=== PATIENT | male | born 1985 | race Hispanic/Latino ===

== ENCOUNTER 2019-08-01 14:36 | Emergency (ER) | payer MEDICAID ==
[2019-08-01] MEDS ORDERED: LORazepam 2 MG/ML VIAL IM PRN (15:12)
[2019-08-01] MEDS ORDERED: HALOPERIDOL LACTATE 5 MG/1 ML INJ IM PRN (15:12)
--- NOTE | 2019-08-01 15:15 | Emergency Department Report ---
Chief Complaint: Psych Stated Complaint: SUICIDAL THOUGHTS - HPI History of Present Illness: 33 y/o male, prader williy syndrome, developmental delay, here for si, caprophage, hallucinations, requests "euthanasia" med clearance for psych labs ed hold psych consult reconcile medications Vital Signs 08/01/19 14:48 Temperature 98.3 F Pulse Rate 72 Respiratory 20 Rate Blood Pressure 121/82 O2 Sat by Pulse 97 Oximetry - Exam Vital Signs: Vital Signs 08/01/19 14:48 Temperature 98.3 F Pulse Rate 72 Respiratory 20 Rate Blood Pressure 121/82 O2 Sat by Pulse 97 Oximetry MSE screening note: Focused history and physical exam performed. Due to findings the following was ordered: ED Disposition for MSE Condition: Stable
--- NOTE | 2019-08-01 15:43 | Emergency Department Report ---
ED Psych HPI - General Chief Complaint: Psych Stated Complaint: SUICIDAL THOUGHTS Time Seen by Provider: 08/01/19 15:33 Source: patient, family Mode of arrival: Ambulatory - History of Present Illness Initial Comments: Pt is a 33 male who comes to ER with caregiver from skilled nursing due to SI and agitation. The caregiver states it peaked last PM when pt stated he wants to , he stooled and urinated on himself, smeared it, and then ingested it. Pt has aud hallucinations to kill himself. He is constricted and will not tell me what his plan is. Pt lives in skilled nursing but his NOK is his mother phone [phone]. Pt is pacing and circling provider; telling me to shut up and leave him alone. Psych Dr Fox who saw pt today and inc his latuda PMH DM HTN PRADER WILLI OSTEOPENIA HPLD BIPOLAR MILD ID RX TESTOSTERONE LATUDA HUMALOG LAMICTAL LISINOPRIL TOPAMAX LANTUS FLONASE LIP[facility]OR shelter [id number] Complaint: suicidal ideation -: Sudden, days(s) Associated Psychiatric Symptoms: auditory hallucinations History of same: Yes (but not in last year) Quality: constant Improves With: none Worsens With: none Associated Symptoms: denies other symptoms Treatments Prior to Arrival: other (saw psych today and they inc latuda) If Self Harm: admits thoughts of, other (will not tell me plan "tells me to shut up and not speak") - Related Data Home Medications Medication Instructions Recorded Confirmed Last Taken FLUoxetine [PROzac] 60 mg PO DAILY 03/01/18 03/01/18 03/01/18 07:00 60 mg Lurasidone HCl [Latuda] 80 mg PO QHS 03/01/18 03/01/18 02/28/18 19:30 Topiramate [Topamax] 100 mg PO BID 03/01/18 03/01/18 03/01/18 07:30 100 mg lamoTRIgine [LaMICtal] 100 mg PO BID 03/01/18 03/01/18 03/01/18 07:30 Previous Rx's Medication Instructions Recorded Last Taken Type AtorvaSTATin [Lipitor] 20 mg PO QHS tablet 03/05/18 Unknown Rx Insulin Glargine [Lantus VIAL] 30 units SUB-Q QHS #300 units 03/05/18 Unknown Rx Lispro Insulin [HumaLOG] 12 unit SUB-Q AC #300 units 03/05/18 Unknown Rx hydroCHLOROthiazide [HCTZ] 25 mg PO QDAY tablet 03/05/18 Unknown Rx lisinopriL [Zestril TAB] 20 mg PO QDAY #30 tablet 03/05/18 Unknown Rx Allergies Allergy/AdvReac Type Severity Reaction Status Date / Time No Known Allergies Allergy Verified 08/01/19 14:41 ED Review of Systems ROS: Stated complaint: SUICIDAL THOUGHTS Other details as noted in HPI Comment: All other systems reviewed and negative ED Past Medical Hx - Past Medical History Previous Medical History?: Yes Hx Hypertension: Yes Hx Heart Attack/AMI: No Hx Congestive Heart Failure: No Hx Diabetes: Yes Hx Deep Vein Thrombosis: No Hx Pulmonary Embolism: No Hx GERD: No Hx Liver Disease: No Hx Renal Disease: No Hx of Cancer: No Hx Sickle Cell Disease: No Hx Arthritis: No Hx Headaches / Migraines: No Hx Seizures: No Hx Kidney Stones: No Hx Psychiatric Treatment: Yes (BIPOLAR) Hx Asthma: No Hx COPD: No Hx Tuberculosis: No Hx Dementia: No Hx HIV: No Additional medical history: prader willi - Surgical History Hx Coronary Stent: No Hx Open Heart Surgery: No Hx Pacemaker: No Hx Internal Defibrillator: No Hx Cholecystectomy: No Hx Appendectomy: Yes Hx Breast Surgery: No - Family History Family history: no significant - Social History Smoking Status: Never Smoker Substance Use Type: None - Medications Home Medications: Home Medications Medication Instructions Recorded Confirmed Last Taken Type FLUoxetine [PROzac] 60 mg PO DAILY 03/01/18 03/01/18 03/01/18 07:00 History 60 mg Lurasidone HCl [Latuda] 80 mg PO QHS 03/01/18 03/01/18 02/28/18 19:30 History Topiramate [Topamax] 100 mg PO BID 03/01/18 03/01/18 03/01/18 07:30 History 100 mg lamoTRIgine [LaMICtal] 100 mg PO BID 03/01/18 03/01/18 03/01/18 07:30 History AtorvaSTATin [Lipitor] 20 mg PO QHS tablet 03/05/18 Unknown Rx Insulin Glargine [Lantus VIAL] 30 units SUB-Q QHS #300 units 03/05/18 Unknown Rx Lispro Insulin [HumaLOG] 12 unit SUB-Q AC #300 units 03/05/18 Unknown Rx hydroCHLOROthiazide [HCTZ] 25 mg PO QDAY tablet 03/05/18 Unknown Rx lisinopriL [Zestril TAB] 20 mg PO QDAY #30 tablet 03/05/18 Unknown Rx ED Physical Exam - General Limitations: Other General appearance: anxious - Head Head exam: Present: atraumatic, normocephalic - Eye Eye exam: Present: normal appearance - ENT ENT exam: Present: mucous membranes moist - Neck Neck exam: Present: normal inspection - Respiratory Respiratory exam: Present: normal lung sounds bilaterally. Absent: respiratory distress - Cardiovascular Cardiovascular Exam: Present: regular rate, normal rhythm. Absent: systolic murmur, diastolic murmur, rubs, gallop - GI/Abdominal GI/Abdominal exam: Present: soft, normal bowel sounds - Rectal Rectal exam: Present: deferred - Extremities Exam Extremities exam: Present: normal capillary refill - Back Exam Back exam: Present: normal inspection - Neurological Exam Neurological exam: Present: alert - Psychiatric Psychiatric exam: Present: agitated, anxious, suicidal ideation - Skin Skin exam: Present: warm, dry. Absent: rash ED Course Vital Signs 08/01/19 08/01/19 08/02/19 14:48 19:53 02:17 Temperature 98.3 F 97.9 F 98.5 F Pulse Rate 72 98 H 80 Respiratory 20 18 18 Rate Blood Pressure 121/82 Blood Pressure 142/85 118/73 [Left] O2 Sat by Pulse 97 98 97 Oximetry 08/02/19 07:00 Temperature 98.2 F Pulse Rate 66 Respiratory 18 Rate Blood Pressure Blood Pressure 146/82 [Left] O2 Sat by Pulse 97 Oximetry ED Medical Decision Making - Lab Data Result diagrams: 08/01/19 16:14 08/01/19 19:25 - Medical Decision Making PLAN 1 medically clear 2 psych eval and placement per their recommendations 3 ED Hold for safety 4 diabetic diet Vital Signs 08/01/19 14:48 Temperature 98.3 F Pulse Rate 72 Respiratory 20 Rate Blood Pressure 121/82 O2 Sat by Pulse 97 Oximetry Labs 08/01/19 08/01/19 08/01/19 16:14 16:14 16:14 WBC 12.2 H RBC 5.22 H Hgb 13.8 Hct 40.7 MCV 78 L MCH 26 L MCHC 34 RDW 14.0 Plt Count 279 Magnesium 2.30 Total Creatine Kinase 164 Salicylates < 0.3 L Acetaminophen Plasma/Serum Alcohol 08/01/19 08/01/19 16:14 16:14 WBC RBC Hgb Hct MCV MCH MCHC RDW Plt Count Magnesium Total Creatine Kinase Salicylates Acetaminophen < 5.0 L Plasma/Serum Alcohol < 0.01 - Differential Diagnosis psychosis Critical care attestation.: If time is entered above; I have spent that time in minutes in the direct care o f this critically ill patient, excluding procedure time. ED Disposition Clinical Impression: Prader-Willi syndrome and diabetes, History of diabetes mellitus Disposition: - TO HOME OR SELFCARE Is pt being admited?: No Does the pt Need Aspirin: No Condition: Stable Additional Instructions: Please follow up with your primary care physician and psychiatrist as soon as possible. Return to the emergency Department with any worsening of your symptoms, thoughts of harming yourself or others, or with any acute distress. Referrals: MANJINDER THOMAS [Other] - 3-5 Days Psychiatrist, Your [Other] - MARYELLEN Time of Disposition: 15:50
[2019-08-01 16:39] LABS: Hematocrit 40.7 % (35.5-45.6); Hemoglobin 13.8 gm/dl (11.8-15.2); Mean Corpuscular HGB Conc 34 % (32-34); Mean Corpuscular Volume 78 fl (84-94); Platelet Count 279 K/mm3 (140-440); Red Blood Count 5.22 M/mm3 (3.65-5.03)
[2019-08-01 20:15] LABS: Alanine Aminotransferase 21 units/L (7-56); Albumin 4.8 g/dL (3.9-5); BUN/Creatinine Ratio 18; Blood Urea Nitrogen 9 mg/dL (9-20); Calcium 9.2 mg/dL (8.4-10.2); Hemolysis Index 34
[2019-08-01 21:22] LABS: Bilirubin,Urine NEG (Negative); Blood,Urine NEG (Negative); Color,Urine Straw (Yellow); Protein,Urine <15 mg/dL mg/dL (Negative); Urobilinogen,Urine < 2.0 mg/dL (<2.0); WBC,Urine < 1.0 /HPF (0.0-6.0)
[2019-08-01 21:29] LABS: Amphetamine Screen,Urine PRESUMPTIVE NEGATIVE; Benzodiazepines Screen,Urine PRESUMPTIVE NEGATIVE; Cannabinoid Screen,Urine PRESUMPTIVE NEGATIVE; Cocaine Screen,Urine PRESUMPTIVE NEGATIVE; Methadone Screen,Urine PRESUMPTIVE NEGATIVE; Opiate Screen,Urine PRESUMPTIVE NEGATIVE
[2019-08-02 07:48] VITALS: BP 146/82
== END 2019-08-02 13:06 | disposition home or self-care (01) ==
LOC: ED 14:36
DX: F31.9 Bipolar disorder, unspecified (principal); Q87.11 Prader-Willi syndrome; E11.9 Type 2 diabetes mellitus without complications; I10 Essential (primary) hypertension; Z90.89 Acquired absence of other organs; Z79.899 Other long term (current) drug therapy; Z79.4 Long term (current) use of insulin
CPT/HCPCS: 36415; 80053; 80307; 80320; 81001; 82550; 82962; 83735; 85027; G0480

== ENCOUNTER 2021-01-25 12:20 | Emergency (ER) | payer MEDICAID ==
[2021-01-25 15:08] VITALS: BP 135/87
--- NOTE | 2021-01-25 16:47 | Emergency Department Report ---
ED General Adult HPI - General Chief complaint: Dental/Oral Stated complaint: MOUTH PAIN Time Seen by Provider: 01/25/21 16:26 Source: patient Mode of arrival: Ambulatory Limitations: No Limitations - History of Present Illness Initial comments: [age]-year-old male patient with history of diabetes and bipolar disorder presents with his caregiver with complaints of right upper dental pain x3 days. Facial swelling began today. Patient rates his pain as a 6/10 in severity and denies any trouble opening his jaw, dysphagia, or fever/chills/sweats. Wen howard's caregiver states that they were going to make a dental appointment today. -: Sudden - Related Data Home Medications Medication Instructions Recorded Confirmed Last Taken FLUoxetine [PROzac] 60 mg PO DAILY 03/01/18 03/01/18 03/01/18 07:00 60 mg Lurasidone HCl [Latuda] 80 mg PO QHS 03/01/18 03/01/18 02/28/18 19:30 Topiramate [Topamax] 100 mg PO BID 03/01/18 03/01/18 03/01/18 07:30 100 mg lamoTRIgine [LaMICtal] 100 mg PO BID 03/01/18 03/01/18 03/01/18 07:30 Previous Rx's Medication Instructions Recorded Last Taken Type AtorvaSTATin [Lipitor] 20 mg PO QHS tablet 03/05/18 Unknown Rx Insulin Glargine [Lantus VIAL] 30 units SUB-Q QHS #300 units 03/05/18 Unknown Rx Lispro Insulin [HumaLOG] 12 unit SUB-Q AC #300 units 03/05/18 Unknown Rx hydroCHLOROthiazide [HCTZ] 25 mg PO QDAY tablet 03/05/18 Unknown Rx lisinopriL [Zestril TAB] 20 mg PO QDAY #30 tablet 03/05/18 Unknown Rx Acetaminophen/Codeine [Tylenol 1 tab PO Q6H PRN #5 tab 01/25/21 Unknown Rx /Codeine # 3 tab] Clindamycin [Clindamycin CAP] 300 mg PO Q6H 10 Days #40 capsule 01/25/21 Unknown Rx Ibuprofen [Motrin 800 MG tab] 800 mg PO Q8HR PRN #20 tablet 01/25/21 Unknown Rx Allergies Allergy/AdvReac Type Severity Reaction Status Date / Time No Known Allergies Allergy Verified 08/01/19 14:41 ED Review of Systems ROS: Stated complaint: MOUTH PAIN Other details as noted in HPI Constitutional: denies: chills, fever, malaise ENT: dental pain. denies: throat pain Respiratory: denies: cough Cardiovascular: denies: chest pain Hematological/Lymphatic: denies: swollen glands ED Past Medical Hx - Past Medical History Previous Medical History?: Yes Hx Hypertension: Yes Hx Heart Attack/AMI: No Hx Congestive Heart Failure: No Hx Diabetes: Yes Hx Deep Vein Thrombosis: No Hx Pulmonary Embolism: No Hx GERD: No Hx Liver Disease: No Hx Renal Disease: No Hx Sickle Cell Disease: No Hx Arthritis: No Hx Headaches / Migraines: No Hx Seizures: No Hx Kidney Stones: No Hx Psychiatric Treatment: Yes (BIPOLAR) Hx Asthma: No Hx COPD: No Hx Tuberculosis: No Hx Dementia: No Hx HIV: No Additional medical history: prader willi - Surgical History Past Surgical History?: Yes Hx Coronary Stent: No Hx Open Heart Surgery: No Hx Pacemaker: No Hx Internal Defibrillator: No Hx Cholecystectomy: No Hx Appendectomy: Yes Hx Breast Surgery: No - Social History Smoking Status: Never Smoker Substance Use Type: None - Medications Home Medications: Home Medications Medication Instructions Recorded Confirmed Last Taken Type FLUoxetine [PROzac] 60 mg PO DAILY 03/01/18 03/01/18 03/01/18 07:00 History 60 mg Lurasidone HCl [Latuda] 80 mg PO QHS 03/01/18 03/01/18 02/28/18 19:30 History Topiramate [Topamax] 100 mg PO BID 03/01/18 03/01/18 03/01/18 07:30 History 100 mg lamoTRIgine [LaMICtal] 100 mg PO BID 03/01/18 03/01/18 03/01/18 07:30 History AtorvaSTATin [Lipitor] 20 mg PO QHS tablet 03/05/18 Unknown Rx Insulin Glargine [Lantus VIAL] 30 units SUB-Q QHS #300 units 03/05/18 Unknown Rx Lispro Insulin [HumaLOG] 12 unit SUB-Q AC #300 units 03/05/18 Unknown Rx hydroCHLOROthiazide [HCTZ] 25 mg PO QDAY tablet 03/05/18 Unknown Rx lisinopriL [Zestril TAB] 20 mg PO QDAY #30 tablet 03/05/18 Unknown Rx Acetaminophen/Codeine [Tylenol 1 tab PO Q6H PRN #5 tab 01/25/21 Unknown Rx /Codeine # 3 tab] Clindamycin [Clindamycin CAP] 300 mg PO Q6H 10 Days #40 capsule 01/25/21 Unknown Rx Ibuprofen [Motrin 800 MG tab] 800 mg PO Q8HR PRN #20 tablet 01/25/21 Unknown Rx ED Physical Exam - General Limitations: No Limitations General appearance: alert, in no apparent distress - Head Head exam: Present: atraumatic, normocephalic - Eye Eye exam: Absent: scleral icterus, conjunctival injection, periorbital tenderness - Expanded ENT Exam Expanded Mouth exam: Present: tongue normal. Absent: drooling, trismus 1 - Dental Tenderness (Dental abscess noted with mild overlying facial swelling pushing towards the right lower eye) Throat exam: Negative: tonsillomegaly - Neck Neck exam: Present: normal inspection. Absent: lymphadenopathy - Respiratory Respiratory exam: Absent: respiratory distress - Cardiovascular Cardiovascular Exam: Present: regular rate, normal rhythm - Neurological Exam Neurological exam: Present: alert, oriented X3, normal gait - Psychiatric Psychiatric exam: Present: normal affect, normal mood - Skin Skin exam: Present: warm, dry, intact, normal color. Absent: rash ED Course Vital Signs 01/25/21 01/25/21 15:07 16:47 Temperature 98.2 F Pulse Rate 111 H 88 Respiratory 20 Rate Blood Pressure 135/87 O2 Sat by Pulse 97 Oximetry ED Medical Decision Making - Medical Decision Making [age]-year-old male patient with history of diabetes and bipolar disorder presents with his caregiver with complaints of right upper dental pain x3 days. Facial swelling began today. Patient rates his pain as a 6/10 in severity and denies any trouble opening his jaw, dysphagia, or fever/chills/sweats. Patient's caregiver states that they were going to make a dental appointment today. Dental abscess noted on exam. Will treat with clindamycin. Recommend follow-up with dental specialist within 2 days. His vitals are normal, he is well- appearing, is stable for discharge home. Discussed strict return precautions in detail with patient and patient's collaborative teacher who verbalized understanding. Critical care attestation.: If time is entered above; I have spent that time in minutes in the direct care of this critically ill patient, excluding procedure time. ED Disposition Clinical Impression: Dental abscess Disposition: DC- TO HOME OR SELFCARE Is pt being admited?: No Condition: Stable Instructions: Dental Abscess Additional Instructions: Please apply a warm compress to the face overlying the infection for about 10 to 15 minutes at least 3 times a day for the next 3 to 4 days. Please follow-up with your dental specialist within 2 to 3 days Prescriptions: Clindamycin [Clindamycin CAP] 300 mg PO Q6H 10 Days #40 capsule Ibuprofen [Motrin 800 MG tab] 800 mg PO Q8HR PRN #20 tablet PRN Reason: Pain, Moderate (4-6) Acetaminophen/Codeine [Tylenol /Codeine # 3 tab] 1 tab PO Q6H PRN #5 tab PRN Reason: Pain , Severe (7-10) Referrals: PRIMARY CARE, [Primary Care Provider] - 3-5 Days
== END 2021-01-25 17:07 | disposition home or self-care (01) ==
LOC: ED 12:20
DX: K04.7 Periapical abscess without sinus (principal); I10 Essential (primary) hypertension; E11.9 Type 2 diabetes mellitus without complications; F31.9 Bipolar disorder, unspecified
CPT/HCPCS: 99281